=== PATIENT | male | born 1970 | race African-American/Black ===

== ENCOUNTER 2018-01-30 10:32 | Emergency (ER) | payer MEDICAID ==
[~2018-01-30] VITALS: Ht 167.6 cm; Wt 88.0 kg
[2018-01-30] MEDS ORDERED: CYCLOBENZAPRINE 10MG TABLET PO ONE (11:45)
[2018-01-30] MEDS ORDERED: KETOROLAC 30MG/ML VIAL IM ONE (11:45)
[2018-01-30 12:12] VITALS: BP 124/77
== END 2018-01-30 13:16 | disposition home or self-care (01) ==
LOC: ER 11:33
DX: M25.512 Pain in left shoulder (principal); M54.2 Cervicalgia
CPT/HCPCS: 73030; 96372; 99284; J1885